=== PATIENT | male | born 1985 | race Asian ===

== ENCOUNTER 2017-01-03 02:07 | Emergency (ER) | payer OTHER, SELFPAY ==
[~2017-01-03] VITALS: Ht 177.8 cm; Wt 113.0 kg
[2017-01-03] MEDS ORDERED: PENICILLIN G BENZATHINE LA 1,200,000 UNITS/2 ML SYRINGE IM ONE (05:00)
[2017-01-03] MEDS ORDERED: DEXAMETHASONE SOD PHOS 4 MG/ML 5 ML VIAL IM ONE (05:00)
[2017-01-03 05:28] VITALS: BP 144/92
== END 2017-01-03 05:45 | disposition home or self-care (01) ==
LOC: EMS 02:08
DX: J02.9 Acute pharyngitis, unspecified (principal)
CPT/HCPCS: 96372; 99284; J0561; J1100

== ENCOUNTER 2017-04-12 19:28 | Emergency (ER) | payer OTHER ==
[~2017-04-12] VITALS: Ht 177.8 cm; Wt 113.6 kg
[2017-04-12] MEDS ORDERED: IBUPROFEN 800 MG TABLET PO ONE (21:15)
[2017-04-12 21:30] VITALS: BP 145/89
== END 2017-04-12 21:50 | disposition home or self-care (01) ==
LOC: EMS 19:29
DX: M77.9 Enthesopathy, unspecified (principal)
CPT/HCPCS: 99284

== ENCOUNTER 2019-01-08 02:50 | Emergency (ER) | payer SELFPAY ==
[2019-01-08] MEDS ORDERED: ATENOLOL 50 MG TABLET PO ONE (03:45)
[2019-01-08 04:00] VITALS: BP 137/92
[2019-01-08 04:32] LABS: BASOPHILS % (AUTO) 0.8 % (0.0-2.0); EOSINOPHILS % (AUTO) 3.8 % (1.0-6.0); HEMATOCRIT 40.9 % (41-53); HEMOGLOBIN 13.8 g/dL (13.5-17.5); LYMPHOCYTES # (AUTO) 2.4 K/uL (1.0-4.8); MEAN CORPUSCULAR HEMOGLOBIN 28.1 pg (26.0-34.0); MEAN CORPUSCULAR HGB CONC 33.8 G/dL (31.0-37.0); MEAN CORPUSCULAR VOLUME 83 fL (80-100); MONOCYTES # (AUTO) 0.8 K/uL (0.1-1.0); MONOCYTES % (AUTO) 12.5 % (2.0-9.0); NEUTROPHILS # (AUTO) 2.7 K/uL (1.8-7.7); NEUTROPHILS % (AUTO) 43.9 % (40.0-70.0); PLATELET COUNT (AUTO) 330 K/uL (150-450); RED BLOOD CELL COUNT(AUTO) 4.91 MIL/uL (4.50-5.90)
== END 2019-01-08 05:13 | disposition home or self-care (01) ==
LOC: EMS 02:52
DX: J40 Bronchitis, not specified as acute or chronic (principal); R73.9 Hyperglycemia, unspecified

== ENCOUNTER 2019-07-11 11:44 | Emergency (ER) | payer SELFPAY ==
[~2019-07-11] VITALS: Ht 177.8 cm; Wt 134.1 kg
[2019-07-11] MEDS ORDERED: ACETAMINOPHEN/CODEINE 300-30 MG TABLET PO ONE (13:45)
[2019-07-11] MEDS ORDERED: IBUPROFEN 800 MG TABLET PO ONE (13:45)
[2019-07-11 13:47] VITALS: BP 139/89
== END 2019-07-11 13:49 | disposition home or self-care (01) ==
LOC: EMS 11:46
DX: J40 Bronchitis, not specified as acute or chronic (principal); J06.9 Acute upper respiratory infection, unspecified

== ENCOUNTER 2020-03-27 13:23 | Emergency (ER) | payer MEDICAID ==
[~2020-03-27] VITALS: Ht 177.8 cm; Wt 131.8 kg
[2020-03-27 15:22] LABS: BASOPHILS % (AUTO) 1.1 % (0.0-2.0); EOSINOPHILS % (AUTO) 1.5 % (1.0-6.0); HEMATOCRIT 41.4 % (41-53); HEMOGLOBIN 14.3 g/dL (13.5-17.5); LYMPHOCYTES # (AUTO) 1.4 K/uL (1.0-4.8); MEAN CORPUSCULAR HEMOGLOBIN 28.4 pg (26.0-34.0); MEAN CORPUSCULAR HGB CONC 34.4 G/dL (31.0-37.0); MEAN CORPUSCULAR VOLUME 83 fL (80-100); MONOCYTES # (AUTO) 0.8 K/uL (0.1-1.0); MONOCYTES % (AUTO) 14.7 % (2.0-9.0); NEUTROPHILS # (AUTO) 3.2 K/uL (1.8-7.7); NEUTROPHILS % (AUTO) 57.7 % (40.0-70.0); PLATELET COUNT (AUTO) 291 K/uL (150-450); RED BLOOD CELL COUNT(AUTO) 5.02 MIL/uL (4.50-5.90); RED CELL DISTRIBUTION WIDTH 13.1 % (11.5-14.5)
[2020-03-27 15:33] LABS: ANION GAP 6 mmol/L (8-16); CALCIUM, TOTAL 9.2 mg/dL (8.8-10.5); CARBON DIOXIDE 28 mmol/L (22-29); CHLORIDE 107 mmol/L (98-107); CREATININE 0.91 mg/dL (0.60-1.30); GLOMERULAR FILTR. RATE CALC > 60 mL/min (>60); GLUCOSE,RANDOM 111 mg/dL (70-110); POTASSIUM 4.1 mmol/L (3.5-5.1); SODIUM SERUM 141 mmol/L (136-145); UREA NITROGEN, BLOOD 15 mg/dL (7-18)
[2020-03-27 15:40] LABS: ALANINE AMINOTRANSFERASE 94 U/L (12-78); ALBUMIN 3.8 g/dL (3.4-5.0); ALKALINE PHOSPHATASE 103 U/L (46-116); ASPARTATE AMINOTRANSFERASE 33 U/L (15-37); BILIRUBIN,TOTAL 0.5 mg/dL (0.1-1.0); TOTAL PROTEIN, SERUM 8.3 g/dL (6.4-8.2)
[2020-03-27 16:25] VITALS: BP 122/92
[2020-03-27 16:40] LABS: COVID AG,FIA SOURCE NASAL SWAB
== END 2020-03-27 16:35 | disposition home or self-care (01) ==
LOC: EMS 13:25
DX: R07.9 Chest pain, unspecified (principal); Z20.828 Contact with and (suspected) exposure to other viral communicable diseases
CPT/HCPCS: 36415; 71045; 80053; 84484; 85025; 87426; 93005; 99285; C9803

== ENCOUNTER 2020-06-18 02:50 | Emergency (ER) | payer MEDICAID, OTHER ==
[~2020-06-18] VITALS: Ht 180.3 cm; Wt 136.4 kg
[2020-06-18 03:48] LABS: COVID AG,FIA SOURCE NASOPHARYNGEAL
[2020-06-18 04:15] VITALS: BP 133/96
== END 2020-06-18 04:35 | disposition home or self-care (01) ==
LOC: EMS 02:52
DX: U07.1 COVID-19 (principal)
CPT/HCPCS: 87426; 99283; U0003

== ENCOUNTER 2020-06-20 12:12 | Emergency (ER) | payer OTHER ==
[~2020-06-20] VITALS: Ht 180.3 cm; Wt 136.4 kg
[2020-06-20 13:42] LABS: BASOPHILS % (AUTO) 0.4 % (0.0-2.0); EOSINOPHILS % (AUTO) 0.2 % (1.0-6.0); HEMATOCRIT 41.1 % (41-53); HEMOGLOBIN 13.9 g/dL (13.5-17.5); LYMPHOCYTES # (AUTO) 1.2 K/uL (1.0-4.8); LYMPHOCYTES % (AUTO) 34.8 % (22.0-44.0); MEAN CORPUSCULAR HGB CONC 33.7 G/dL (31.0-37.0); MEAN CORPUSCULAR VOLUME 83 fL (80-100); MONOCYTES # (AUTO) 0.7 K/uL (0.1-1.0); MONOCYTES % (AUTO) 19.6 % (2.0-9.0); NEUTROPHILS # (AUTO) 1.5 K/uL (1.8-7.7); PLATELET COUNT (AUTO) 194 K/uL (150-450); RED BLOOD CELL COUNT(AUTO) 4.96 MIL/uL (4.50-5.90); RED CELL DISTRIBUTION WIDTH 13.2 % (11.5-14.5)
[2020-06-20 13:49] LABS: ANION GAP 9 mmol/L (8-16); CALCIUM, TOTAL 8.8 mg/dL (8.8-10.5); CARBON DIOXIDE 28 mmol/L (22-29); CHLORIDE 100 mmol/L (98-107); GLOMERULAR FILTR. RATE CALC > 60 mL/min (>60); GLUCOSE,RANDOM 108 mg/dL (70-110); POTASSIUM 3.9 mmol/L (3.5-5.1); SODIUM SERUM 137 mmol/L (136-145); UREA NITROGEN, BLOOD 16 mg/dL (7-18)
[2020-06-20 13:55] LABS: ALANINE AMINOTRANSFERASE 84 U/L (12-78); ALBUMIN 3.8 g/dL (3.4-5.0); ALKALINE PHOSPHATASE 112 U/L (46-116); ASPARTATE AMINOTRANSFERASE 43 U/L (15-37); BILIRUBIN,TOTAL 0.4 mg/dL (0.1-1.0); TOTAL PROTEIN, SERUM 8.3 g/dL (6.4-8.2)
[2020-06-20] MEDS ORDERED: DEXAMETHASONE 4 MG TABLET PO ONE (14:00)
[2020-06-20 14:20] VITALS: BP 140/87
[2020-06-20] MEDS ORDERED: ACETAMINOPHEN 500 MG TABLET PO ONE (14:30)
== END 2020-06-20 14:58 | disposition home or self-care (01) ==
LOC: EMS 12:12
DX: U07.1 COVID-19 (principal); R06.02 Shortness of breath; R05 Cough; F17.200 Nicotine dependence, unspecified, uncomplicated
CPT/HCPCS: 36415; 71045; 80053; 85025; 99284; J8540

== ENCOUNTER 2020-07-11 18:58 | Emergency (ER) | payer OTHER ==
[~2020-07-11] VITALS: Ht 177.8 cm; Wt 138.6 kg
[2020-07-11] MEDS ORDERED: IBUP-1506 PO (19:09)
[2020-07-11 20:52] LABS: BASOPHILS % (AUTO) 0.7 % (0.0-2.0); EOSINOPHILS % (AUTO) 1.8 % (1.0-6.0); HEMATOCRIT 38.3 % (41-53); HEMOGLOBIN 13.1 g/dL (13.5-17.5); LYMPHOCYTES % (AUTO) 26.5 % (22.0-44.0); MEAN CORPUSCULAR HEMOGLOBIN 27.9 pg (26.0-34.0); MEAN CORPUSCULAR HGB CONC 34.1 G/dL (31.0-37.0); MEAN CORPUSCULAR VOLUME 82 fL (80-100); MONOCYTES # (AUTO) 0.8 K/uL (0.1-1.0); NEUTROPHILS # (AUTO) 4.6 K/uL (1.8-7.7); PLATELET COUNT (AUTO) 266 K/uL (150-450); RED BLOOD CELL COUNT(AUTO) 4.67 MIL/uL (4.50-5.90); RED CELL DISTRIBUTION WIDTH 13.4 % (11.5-14.5)
[2020-07-11 21:07] LABS: ANION GAP 9 mmol/L (8-16); CALCIUM, TOTAL 9.1 mg/dL (8.8-10.5); CARBON DIOXIDE 27 mmol/L (22-29); CHLORIDE 102 mmol/L (98-107); GLOMERULAR FILTR. RATE CALC > 60 mL/min (>60); GLUCOSE,RANDOM 104 mg/dL (70-110); SODIUM SERUM 138 mmol/L (136-145); UREA NITROGEN, BLOOD 18 mg/dL (7-18)
[2020-07-11 21:12] LABS: ALANINE AMINOTRANSFERASE 116 U/L (12-78); ALKALINE PHOSPHATASE 108 U/L (46-116); ASPARTATE AMINOTRANSFERASE 43 U/L (15-37); BILIRUBIN,TOTAL 0.3 mg/dL (0.1-1.0); TOTAL PROTEIN, SERUM 8.1 g/dL (6.4-8.2)
[2020-07-11 21:48] LABS: APPEARANCE,URINE CLEAR (CLEAR); BILIRUBIN,URINE NEGATIVE (NEGATIVE); GLUCOSE, URINE (UA) NEGATIVE (NEGATIVE); KETONES,URINE NEGATIVE (NEGATIVE); LEUKOCYTE ESTERASE ,URINE NEGATIVE (NEGATIVE); NITRATE,URINE NEGATIVE (NEGATIVE); OCCULT BLOOD,URINE NEGATIVE (NEGATIVE); PH,URINE 5.5 (5.0-8.0); PROTEIN,URINE POS 1+ (NEGATIVE); UROBILINOGEN,URINE 0.2 mg/dL (<=1.0)
[2020-07-11 22:00] VITALS: BP 141/89
== END 2020-07-11 22:00 | disposition home or self-care (01) ==
LOC: EMS 18:58
DX: R20.2 Paresthesia of skin (principal); R07.89 Other chest pain
CPT/HCPCS: 85379; 93005; 99285; 36415-L1; 36415-TC; 71045-TC; 81003-TC